=== PATIENT | female | born 1945 | race Caucasian/White ===

== ENCOUNTER 2016-10-14 09:20 | Inpatient (IN) | payer MEDICARE, OTHER ==
[2016-10-14 08:38] LABS: BASO % 0.2 % (0-2); EOS % 0.8 % (0-7); EOSINOPHIL ABSOLUTE COUNT 0.1 tho/cmm (0.0-0.7); HCT-HEMATOCRIT 44.5 % (34.0-49.0); HGB-HEMOGLOBIN 15.2 gm/dl (12.0-15.5); IMMATURE GRANULOCYTES ABSOLUTE 0.02 tho/cmm (0-0.03); IMMATURE GRANULOCYTES PERCENT 0.3 % (0-0.3); LYMPH % 53.7 % (20-45); LYMPH ABSOLUTE COUNT 3.2 tho/cmm (0.8-4.5); MCHC MEAN CORPUSCULAR HGB CONC 34.2 % (32.0-36.0); MCV (MEAN CELL VOLUME) 90.6 fl (82.0-96.0); MEAN PLATELET VOLUME 10.1 cmc (9.4-12.4); MONO % 6.4 % (0-12); MONOCYTE ABSOLUTE COUNT 0.4 tho/cmm (0.0-1.2); NEUTROPHIL ABSOLUTE COUNT 2.3 tho/cmm (1.6-8.0); NEUTROPHIL-AUTOMATED 2.3 tho/cmm (1.6-8.0); NEUTROPHILS % 38.6 % (40-80); PLATELET COUNT 74 tho/cmm (150-450); RED BLOOD COUNT 4.91 mil/cmm (4.00-5.20); RED CELL DISTRIBUTION WIDTH 13.4 % (12.4-16.4); WHITE BLOOD COUNT 5.9 tho/cmm (4.0-10.0)
[2016-10-14 08:56] LABS: ALB/GLOB RATIO 1.7 (0.8-2.0); ALBUMIN 4.1 g/dl (3.5-5.0); ALKALINE PHOSPHATASE 76 U/L (33-138); ALT/SGPT 12 U/L (12-78); ANION GAP 14 mmol/L (0-20); AST/SGOT 18 U/L (10-40); BILIRUBIN,DIRECT 0.3 mg/dl (0.0-0.3); BILIRUBIN,INDIRECT 0.8 mg/dL (0.0-1.0); BILIRUBIN,TOTAL 1.1 mg/dl (0-1.5); BLOOD UREA NITROGEN 16 mg/dl (6-24); CALCIUM 8.6 mg/dl (8.5-10.5); CARBON DIOXIDE-VENOUS 24 mmol/L (22-32); CHLORIDE 105 mmol/l (96-110); CREATININE 0.79 mg/dl (0.50-1.10); GLUCOSE 104 mg/dL (70-110); POTASSIUM 4.2 mmol/L (3.7-5.1); SODIUM 139 mmol/L (135-145); eGFR VALUE FOR BLACK >60 mL/Min
[2016-10-14 09:10] LABS: PROCALCITONIN <0.05 ng/ml (0.05-0.09)
[~2016-10-14 09:20] MED LIST: AMOXICILLIN PO; CALCIUM PO; CALCIUM500 M4 PO; CLARITIN10 M8 PO; COQ-10100 M1 PO; CULTURELLE1 EAC1 PO; CYCLOBENZAPRINE10 M1 PO; DAILY VALUE1 EAC1 PO; KLOR-CON 1010 ME1 PO; MEDROL4 M2 PO; MUCINEX600 M1 PO; NEXIUM20 M1 PO; NORCO 10-325 T1 EACH PO; RECLAST IV; TUMS ULTRA400 MG PO; TYLENOL EXTRA500 M1 PO; ULTRAM50 M1 PO; VITAMIN D32000 UNI2 PO; ZITHROMAX500 M2 PO; ZOCOR20 M1 PO
[2016-10-15 05:55] LABS: ANION GAP 14 mmol/L (0-20); BLOOD UREA NITROGEN 12 mg/dl (6-24); CARBON DIOXIDE-VENOUS 25 mmol/L (22-32); CHLORIDE 107 mmol/l (96-110); CREATININE 0.62 mg/dl (0.50-1.10); GLUCOSE 95 mg/dL (70-110); POTASSIUM 3.7 mmol/L (3.7-5.1); SODIUM 142 mmol/L (135-145); eGFR VALUE FOR BLACK >60 mL/Min
[2016-10-15 05:58] LABS: BASO % 0.2 % (0-2); EOS % 0.5 % (0-7); HCT-HEMATOCRIT 39.1 % (34.0-49.0); HGB-HEMOGLOBIN 12.9 gm/dl (12.0-15.5); IMMATURE GRANULOCYTES ABSOLUTE 0.02 tho/cmm (0-0.03); IMMATURE GRANULOCYTES PERCENT 0.5 % (0-0.3); MCH (MEAN CORPUSCULAR HGB) 30.1 pg (28.0-32.0); MCV (MEAN CELL VOLUME) 91.1 fl (82.0-96.0); MEAN PLATELET VOLUME 10.2 cmc (9.4-12.4); MONO % 7.9 % (0-12); MONOCYTE ABSOLUTE COUNT 0.3 tho/cmm (0.0-1.2); NEUTROPHIL ABSOLUTE COUNT 1.7 tho/cmm (1.6-8.0); NEUTROPHIL-AUTOMATED 1.7 tho/cmm (1.6-8.0); NEUTROPHILS % 40.9 % (40-80); PLATELET COUNT 64 tho/cmm (150-450); RED BLOOD COUNT 4.29 mil/cmm (4.00-5.20); RED CELL DISTRIBUTION WIDTH 13.5 % (12.4-16.4); WHITE BLOOD COUNT 4.1 tho/cmm (4.0-10.0)
[2016-10-17 04:53] LABS: PLATELET COUNT 67 tho/cmm (150-450)
[2016-10-19 05:53] LABS: HGB-HEMOGLOBIN 13.6 gm/dl (12.0-15.5); PLATELET COUNT 87 tho/cmm (150-450)
[2016-10-19] MEDS ORDERED: IPRAT-ALBUT 0.5-3 ML INH (12:43)
[2016-10-19] MEDS ORDERED: BROVANA15 MCG/22 INH (12:47)
[2016-10-19] MEDS ORDERED: PREDNISONE20 M1 PO (12:53)
== END 2016-10-19 13:33 | DRG 194 ==
LOC: EDMED 09:20 → EMR2 10:25 → CAR1 11:34
PROVIDERS: Emergency Medicine; Family Medicine; ADMIT Hospitalist
DX: J18.9 Pneumonia, unspecified organism (principal); C83.00 Small cell B-cell lymphoma, unspecified site; D69.6 Thrombocytopenia, unspecified; B97.81 Human metapneumovirus as the cause of diseases classified elsewhere; K21.9 Gastro-esophageal reflux disease without esophagitis; R19.7 Diarrhea, unspecified; R59.0 Localized enlarged lymph nodes; J45.909 Unspecified asthma, uncomplicated; M53.3 Sacrococcygeal disorders, not elsewhere classified; G89.29 Other chronic pain; E78.5 Hyperlipidemia, unspecified
CPT/HCPCS: G0378; G8978-GO-CI; G8978-GP-CJ; G8979-GO-CI; G8979-GP-CJ; G8980-GO-CI; G8980-GP-CJ; J0456; J0696; J1650; J2543; J2920; J2930; J3370; J7030; J7050; J7512; Q9967